=== PATIENT | male | born 1955 | race Caucasian/White ===

== ENCOUNTER 2018-04-22 18:45 | Observation (INO) | payer MEDICARE ==
[2018-04-22] MEDS ORDERED: SODIUM CHLORIDE 0.9% 1,000 ML IV STA ×2 (19:27)
--- NOTE | 2018-04-22 19:31 | CT ---
EXAMINATION TYPE: CT brain wo con DATE OF EXAM: 04/22/2018 COMPARISON: None HISTORY: dr meyer, stroke like symptoms, headache. CT DLP: 1153.4 mGycm Automated exposure control for dose reduction was used. FINDINGS: There is cerebral cortical atrophy. There is no mass effect nor midline shift. There is no sign of in tracranial hemorrhage. There is cavum septum pellucidum which is normal variation. There is small muc us retention cyst right maxillary sinus. Calvarium is intact. IMPRESSION: MILD ATROPHY. NO ACUTE INTRACRANIAL ABNORMALITY.
[2018-04-22 19:59] LABS: Basophils % (A) 0 %; Eosinophils # (A) 0.1 k/uL (0-0.7); Eosinophils % (A) 1 %; HCT 44.8 % (39.0-53.0); HGB 15.6 gm/dL (13.0-17.5); Lymphocytes # (A) 1.5 k/uL (1.0-4.8); Lymphocytes % (A) 12 %; MCH 29.5 pg (25.0-35.0); MCV 84.4 fL (80.0-100.0); Mean Platelet Volume 7.7; Monocytes # (A) 0.7 k/uL (0-1.0); Monocytes % (A) 5 %; Neutrophils # (A) 10.8 k/uL (1.3-7.7); Neutrophils % (A) 81 %; Platelet Count 224 k/uL (150-450); RDW 13.4 % (11.5-15.5); WBC 13.5 k/uL (3.8-10.6)
[2018-04-22 20:09] LABS: ALT 44 U/L (21-72); AST 24 U/L (17-59); Alkaline Phosphatase 64 U/L (38-126); Anion Gap 11 mmol/L; Blood Urea Nitrogen 20 mg/dL (9-20); Calcium 9.8 mg/dL (8.4-10.2); Carbon Dioxide 25 mmol/L (22-30); Chloride 101 mmol/L (98-107); Glucose 242 mg/dL (74-99); Magnesium 1.9 mg/dL (1.6-2.3); Phosphorus 3.9 mg/dL (2.5-4.5); Potassium 3.8 mmol/L (3.5-5.1); Sodium 137 mmol/L (137-145); Total Bilirubin 0.5 mg/dL (0.2-1.3)
[2018-04-22 20:13] LABS: Creatine Kinase 150 U/L (55-170)
[2018-04-22 20:23] LABS: Prothrombin Time 10.2 sec (9.0-12.0)
[2018-04-22 20:25] LABS: Partial Thromboplastin Time 21.4 sec (22.0-30.0)
[2018-04-22 20:26] LABS: Creatine Kinase MB 1.8 ng/mL (0.0-2.4); Troponin I <0.012 ng/mL (0.000-0.034)
--- NOTE | 2018-04-22 21:17 | CT ---
EXAMINATION TYPE: CT angio head neck DATE OF EXAM: 04/22/2018 HISTORY: stroke like symptoms, facial numbness COMPARISON: None CT DLP: 719.3 mGycm. Automated Exposure Control for Dose Reduction was Utilized. TECHNIQUE: CTA scan of the neck is performed with IV Contrast, patient injected with 65 mL of Isovue 370, axial images are obtained, coronal and sagittal reformatted images are reviewed. Three-D recons tructed images are created on an independent workstation and reviewed. FINDINGS: There is normal branching pattern of the great vessels on the aortic arch. There is bilateral arterial flow in the vertebral arteries. There is bilateral arterial flow in the c ommon internal and external carotid arteries. There is no evidence of carotid artery aneurysm or diss ection. There is no evidence of carotid artery stenosis. There is arterial flow in the vertebrobasilar artery system. There is arterial flow in the anterior m iddle and posterior cerebral arteries. I see no evidence of aneurysm or neovascularity. There is no m ass effect. There is normal contrast opacification of the venous sinuses. There is no evidence of int racranial arterial stenosis. The anterior cerebral arteries appear to fill entirely from the right si de. There is a diminutive proximal left anterior cerebral artery. This is probably developmental. IMPRESSION: Negative CT angiogram of the neck. Negative CT angiogram of the brain.
[2018-04-22] MEDS ORDERED: ASPIRIN 325 MG TAB PO STA (21:19)
[2018-04-22] MEDS ORDERED: ALPRAZolam 0.5 MG TAB PO PRN (21:31)
--- NOTE | 2018-04-22 21:35 | ED ---
Headache HPI - General Mode of arrival: ambulatory <Veronika Martin - Last Filed: 04/23/18 02:16> <Ivanna Stephens - Last Filed: 04/27/18 04:02> - General Chief Complaint: Headache Stated Complaint: Dr meyer, stroke like symptoms Time Seen by Provider: 04/22/18 18:58 - History of Present Illness Initial Comments: 62yo male with PMH of HTN and DM presenting today for cc of severe headache and right sided facial numbness. Patient states that about hour prior to presentation he was driving home when he experienced a sudden onset of severe left-sided headache. At the same time he noted right-sided she'll numbness and mild dizziness. Patient presented to a clinic in [place] for evaluation. Patient denies any upper extremity paresthesias, muscle weakness, sensation deficits of the upper or lower extremities, dysarthria, difficulty speaking or swallowing, difficulty ambulating, facial droop, visual changes, diplopia nausea , vomiting, chest pain, shortness of breath, pre-or syncope, palpitations or any other associated symptoms at that time. Patient states that shortly after leaving the clinic his symptoms subsided was told to come immediately to the emergency department. Upon arrival his blood pressure is mildly elevated. Otherwise vital signs unremarkable. Patient appears well, no signs of acute distress. Patient denies any current symptomology. Remainder of ROS negative. (Veronika Martin) - Related Data Home Medications Medication Instructions Recorded Confirmed Montelukast [Singulair] 10 mg PO HS 03/16/14 04/22/18 ALPRAZolam [Xanax] 0.5 mg PO BID PRN 04/22/18 04/22/18 Aspirin EC [Ecotrin Low Dose] 81 mg PO HS 04/22/18 04/22/18 Benzonatate [Tessalon Perles] 100 mg PO TID PRN 04/22/18 04/22/18 Hydrochlorothiazide [Hydrodiuril] 50 mg PO HS 04/22/18 04/22/18 Moxifloxacin HCl [Avelox] 400 mg PO HS 04/22/18 04/22/18 Omeprazole 20 mg PO HS 04/22/18 04/22/18 amLODIPine [Norvasc] 10 mg PO HS 04/22/18 04/22/18 metFORMIN HCL ER [Glucophage Xr] 500 mg PO AC-SUPPER 04/22/18 04/22/18 methylPREDNISolone [Medrol Dose See Taper PO DIRECTED 04/22/18 04/22/18 Pack] Previous Rx's Medication Instructions Recorded Lisinopril 20 mg PO HS #0 04/23/18 Allergies Allergy/AdvReac Type Severity Reaction Status Date / Time No Known Allergies Allergy Verified 04/22/18 20:08 Review of Systems ROS Other: All systems not noted in ROS Statement are negative. Constitutional: Denies: fever, chills, night sweats Eyes: Denies: eye pain, vision change ENT: Denies: ear pain, throat pain, hearing loss Respiratory: Denies: cough, dyspnea, wheezes, hemoptysis, stridor Cardiovascular: Denies: chest pain, palpitations, dyspnea on exertion Endocrine: Denies: fatigue Gastrointestinal: Denies: abdominal pain, nausea, vomiting, diarrhea, constipation, hematemesis, melena, hematochezia Genitourinary: Denies: urgency, dysuria, frequency, hematuria, discharge Musculoskeletal: Denies: back pain Skin: Denies: rash, lesions Neurological: Reports: headache, numbness. Denies: weakness, paresthesias, confusion, abnormal gait <Veronika Martin - Last Filed: 04/23/18 02:16> ROS Other: All systems not noted in ROS Statement are negative. <Ivanna Stephens P - Last Filed: 04/27/18 04:02> ROS Statement: Those systems with pertinent positive or pertinent negative responses have been documented in the HPI. Past Medical History Past Medical History: Diabetes Mellitus, GERD/Reflux, Hypertension History of Any Multi-Drug Resistant Organisms: None Reported Past Surgical History: Orthopedic Surgery Additional Past Surgical History / Comment(s): knee Past Psychological History: Anxiety Smoking Status: Never smoker Past Alcohol Use History: Occasional Past Drug Use History: None Reported <Veronika Martin - Last Filed: 04/23/18 02:16> - Past Family History Mother Family Medical History: CVA/TIA Additional Family Medical History / Comment(s): CVA Father Family Medical History: CVA/TIA Additional Family Medical History / Comment(s): CVA <Ivanna Stephens - Last Filed: 04/27/18 04:02> General Exam <Veronika Martin Last Filed: 04/23/18 02:16> <Ivanna Stephens P - Last Filed: 04/27/18 04:02> - General Exam Comments Initial Comments: General: The patient is awake and alert, in no distress, and does not appear acutely ill. Eye: +3 pupils are equal, round and reactive to light, extra-ocular movements are intact. No nystagmus. no APD, no conjugate gaze. There is normal conjunctiva bilaterally. No signs of icterus. Ears, nose, mouth and throat: There are moist mucous membranes and no oral lesions. Neck: The neck is supple, there is no tenderness or JVD. No carotid artery bruits Cardiovascular: There is a regular rate and rhythm. No murmur, rub or gallop is appreciated. Respiratory: Lungs are clear to auscultation, respirations are non-labored, breath sounds are equal. No wheezes, stridor, rales, or rhonchi. Musculoskeletal: Normal ROM, no tenderness. Strength 5/5. Sensation intact. Pulses equal bilaterally 2+. Neurological: A&O x 3. CN II-XII intact, memory intact to immediately, intermediate and prison recall. Able to follow simple verbal. Able to name a common object (pen). High quality, labial (pa) and lingual (la) speech. Low quality posterior pharynx/larynx (ga) voice sounds. Able to express general knowledge (days in a week). No hemineglect or inattention noted. Finger agnosia (-) and spatially oriented (identified L index finger touched R shoulder with L index finger). Light touchsensation present over the face, chest, abdomen, back, UE bilaterally, and LE bilaterally. Able to localize point during point localization b/l and extinction. No visible bulk atrophy, hypertrophy, fasciculations, or myoclonus of the UE or LE b/l. Full PROM in UE and LE b/l. Bilateral muscle strength 5/5 for the following muscles: deltoid, biceps, triceps, brachioradialis, wrist extensors/flexor, hip flexor, hip abductors/adductors, hamstrings, quadriceps, feet dorsiflexors/plantar flexors. Finger to nose, finger to the examiners finger, and heel to garcia coordinated and accurate b/l. Coordinated and even demonstration of hand flip, finger to thumb, and toe tap b/l. ( Gait is coordinated and even in stride with tandem, toe and heel walk. Maintains balance with monopedal stance. (-) Romberg. (-) pronator drift. No nuchal rigidity. Skin: Skin is warm and dry and no rashes or lesions are noted. Psychiatric: Cooperative, appropriate mood & affect, normal judgment. (Veronika Martin) Course <Veronika Martin - Last Filed: 04/23/18 02:16> <Ivanna Stephens P - Last Filed: 04/27/18 04:02> Vital Signs 04/22/18 04/22/18 04/22/18 18:47 21:18 22:54 Temperature 98.3 F 98.5 F Pulse Rate 81 66 Pulse Rate [ 67 Imaging Clerk ] Respiratory 20 18 17 Rate Blood Pressure 151/78 135/78 Blood Pressure 119/69 [Right Arm Supine] O2 Sat by Pulse 99 98 95 Oximetry 04/22/18 04/23/18 04/23/18 23:54 00:54 01:54 Temperature Pulse Rate Pulse Rate [ 57 L 58 L 51 L Imaging Clerk ] Respiratory 18 18 16 Rate Blood Pressure Blood Pressure 113/60 113/74 123/84 [Right Arm Supine] O2 Sat by Pulse 95 95 96 Oximetry 04/23/18 04/23/18 04/23/18 03:54 05:54 07:54 Temperature Pulse Rate Pulse Rate [ 57 L 71 72 Imaging Clerk ] Respiratory 16 16 16 Rate Blood Pressure Blood Pressure 116/79 111/62 111/56 [Right Arm Supine] O2 Sat by Pulse 97 95 97 Oximetry 04/23/18 04/23/18 04/23/18 09:54 11:54 13:54 Temperature 98 F Pulse Rate Pulse Rate [ 68 68 67 Imaging Clerk ] Respiratory 18 18 18 Rate Blood Pressure Blood Pressure 110/66 138/92 113/87 [Right Arm Supine] O2 Sat by Pulse 96 95 96 Oximetry 04/23/18 15:54 Temperature Pulse Rate Pulse Rate [ 64 Imaging Clerk ] Respiratory 16 Rate Blood Pressure Blood Pressure 124/79 [Right Arm Supine] O2 Sat by Pulse 97 Oximetry Medical Decision Making - Lab Data Result diagrams: 04/22/18 19:14 04/22/18 19:14 <Veronika Martin - Last Filed: 04/23/18 02:16> - Lab Data Result diagrams: 04/22/18 19:14 04/22/18 19:14 <Ivanna Stephens - Last Filed: 04/27/18 04:02> - Medical Decision Making EKG no acute findings. Laboratory findings as noted above, elevated blood glucose and mildly elevated WBC. CT brain w/o contrast and CT angio (-). No focal neurological deficits on exam. Pt continues to deny symptoms. Pt given 325 ASA. Given symptoms, and risk factors concerned for TIA. Pt admitted after discussing the case with Dr. Stephens. Dr. Mitchell accepted admission. Neurology on consult. All findings discussed with patient, pt is agreeable with admission. Denied questions at this time. Home medications resumed. BP remains stable. (Veronika Martin) I personally saw and examined the patient. I reviewed and agree with the mid- level provider findings including all diagnostic interpretations and treatment plans as written unless otherwise stated. I was present for granda portions of any procedures performed. I agree with the plan for admission, patient care was discussed with Dr. Mitchell who accepts the admission. (Ivanna Stephens) - Lab Data Lab Results 04/22/18 04/22/18 04/22/18 Range/Units 19:14 19:14 19:14 WBC 13.5 H (3.8-10.6) k/uL RBC 5.30 (4.30-5.90) m/uL Hgb 15.6 (13.0-17.5) gm/dL Hct 44.8 (39.0-53.0) % MCV 84.4 (80.0-100.0) fL MCH 29.5 (25.0-35.0) pg MCHC 35.0 (31.0-37.0) g/dL RDW 13.4 (11.5-15.5) % Plt Count 224 (150-450) k/uL Neutrophils % 81 % Lymphocytes % 12 % Monocytes % 5 % Eosinophils % 1 % Basophils % 0 % Neutrophils # 10.8 H (1.3-7.7) k/uL Lymphocytes # 1.5 (1.0-4.8) k/uL Monocytes # 0.7 (0-1.0) k/uL Eosinophils # 0.1 (0-0.7) k/uL Basophils # 0.0 (0-0.2) k/uL PT (9.0-12.0) sec INR (<1.2) APTT (22.0-30.0) sec Sodium 137 (137-145) mmol/L Potassium 3.8 (3.5-5.1) mmol/L Chloride 101 (98-107) mmol/L Carbon Dioxide 25 (22-30) mmol/L Anion Gap 11 mmol/L BUN 20 (9-20) mg/dL Creatinine 0.85 (0.66-1.25) mg/dL Est GFR (CKD-EPI)AfAm >90 (>60 ml/min/1.73 sqM) Est GFR (CKD-EPI)NonAf >90 (>60 ml/min/1.73 sqM) Glucose 242 H (74-99) mg/dL Calcium 9.8 (8.4-10.2) mg/dL Phosphorus 3.9 (2.5-4.5) mg/dL Magnesium 1.9 (1.6-2.3) mg/dL Total Bilirubin 0.5 (0.2-1.3) mg/dL AST 24 (17-59) U/L ALT 44 (21-72) U/L Alkaline Phosphatase 64 (38-126) U/L Total Creatine Kinase 150 (55-170) U/L CK-MB (CK-2) 1.8 (0.0-2.4) ng/mL CK-MB (CK-2) Rel Index 1.2 Troponin I <0.012 (0.000-0.034) ng/mL Total Protein 7.0 (6.3-8.2) g/dL Albumin 4.0 (3.5-5.0) g/dL 04/22/18 Range/Units 19:14 WBC (3.8-10.6) k/uL RBC (4.30-5.90) m/uL Hgb (13.0-17.5) gm/dL Hct (39.0-53.0) % MCV (80.0-100.0) fL MCH (25.0-35.0) pg MCHC (31.0-37.0) g/dL RDW (11.5-15.5) % Plt Count (150-450) k/uL Neutrophils % % Lymphocytes % % Monocytes % % Eosinophils % % Basophils % % Neutrophils # (1.3-7.7) k/uL Lymphocytes # (1.0-4.8) k/uL Monocytes # (0-1.0) k/uL Eosinophils # (0-0.7) k/uL Basophils # (0-0.2) k/uL PT 10.2 (9.0-12.0) sec INR 1.0 (<1.2) APTT 21.4 L (22.0-30.0) sec Sodium (137-145) mmol/L Potassium (3.5-5.1) mmol/L Chloride (98-107) mmol/L Carbon Dioxide (22-30) mmol/L Anion Gap mmol/L BUN (9-20) mg/dL Creatinine (0.66-1.25) mg/dL Est GFR (CKD-EPI)AfAm (>60 ml/min/1.73 sqM) Est GFR (CKD-EPI)NonAf (>60 ml/min/1.73 sqM) Glucose (74-99) mg/dL Calcium (8.4-10.2) mg/dL Phosphorus (2.5-4.5) mg/dL Magnesium (1.6-2.3) mg/dL Total Bilirubin (0.2-1.3) mg/dL AST (17-59) U/L ALT (21-72) U/L Alkaline Phosphatase (38-126) U/L Total Creatine Kinase (55-170) U/L CK-MB (CK-2) (0.0-2.4) ng/mL CK-MB (CK-2) Rel Index Troponin I (0.000-0.034) ng/mL Total Protein (6.3-8.2) g/dL Albumin (3.5-5.0) g/dL - EKG Data EKG Comments: Ventricular rate 72bpm, PA interveal 156 ms, QRS duration 104ms, QT/QTc 406/ 444. Normal sinus rhythm, left anterior fascicular block. No ST elevtion or depression. Nonspecific T wave changes. EKG interpretted by myself and reviewed Dr. Stephens (Veronika Martin) Disposition Is patient prescribed a controlled substance at d/c from ED?: No Time of Disposition: 21:35 Decision to Admit Reason: Admit from EC Decision Date: 04/22/18 Decision Time: 21:35 <Veronika Martin - Last Filed: 04/23/18 02:16> <Ivanna Stephens - Last Filed: 04/27/18 04:02> Clinical Impression: TIA (transient ischemic attack) Disposition: ADMITTED IP TO THIS HOSP Condition: Stable
[2018-04-22] MEDS ORDERED: SODIUM CHLORIDE 0.9% 1,000 ML IV SCH (21:45)
[2018-04-22] MEDS ORDERED: HYDROCHLOROTHIAZIDE 50 MG TAB PO SCH (23:30)
[2018-04-22] MEDS ORDERED: LISINOPRIL 20 MG TAB PO SCH (23:30)
[2018-04-22] MEDS ORDERED: amLODIPine 10 MG TAB PO SCH (23:30)
[2018-04-22] MEDS ORDERED: MONTELUKAST 10 MG TAB PO SCH (23:30)
[2018-04-22] MEDS ORDERED: PANTOPRAZOLE 40 MG TABLET PO SCH (23:30)
[2018-04-23] MEDS: LEVOFLOXACIN 750 MG TAB PO SCH ×2 (00:54→00:55)
[2018-04-23 06:44] LABS: Cholesterol 160 mg/dL (<200); HDL Cholesterol 43 mg/dL (40-60); LDL Cholesterol,Calculated 105 mg/dL (0-99); Triglycerides 59 mg/dL (<150)
--- NOTE | 2018-04-23 12:22 | ECHOF ---
Referral Reason:Thrombus MEASUREMENTS -------- HEIGHT: 182.9 cm WEIGHT: 113.4 kg BP: 111/62 RVIDd: 3.4 cm (< 3.3) IVSd: 1.2 cm (0.6 - 1.1) LVIDd: 3.2 cm (3.9 - 5.3) LVPWd: 1.6 cm (0.6 - 1.1) IVSs: 1.6 cm LVIDs: 1.9 cm LVPWs: 1.7 cm LAESV Index (A-L): 19.49 ml/m Ao Diam: 3.0 cm (2.0 - 3.7) AV Cusp: 2.0 cm (1.5 - 2.6) LA Diam: 3.7 cm (2.7 - 3.8) MV EXCURSION: 14.013 mm (> 18.000) MV EF SLOPE: 81 mm/s (70 - 150) EPSS: 0.6 cm MV E Zane: 0.61 m/s MV DecT: 268 ms MV A Zane: 0.77 m/s MV E/A Ratio: 0.79 RAP: 5.00 mmHg RVSP: 20.73 mmHg FINDINGS -------- Sinus rhythm. This was a technically good study. The left ventricular size is normal. There is moderate concentric left ventricular hypertrophy. O verall left ventricular systolic function is normal with, an EF between 55 - 60 %. The right ventricle is mildly enlarged. The left atrial size is normal. The right atrium is normal in size. The aortic valve is trileaflet and appears structurally normal. The mitral valve is normal. There is trace mitral regurgitation. Trace tricuspid regurgitation present. There is no evidence of pulmonary hypertension. The right ventricular systolic pressure, as measured by Doppler, is 20.73mmHg. There is no pulmonic regurgitation present. The aortic root size is normal. There is no pericardial effusion. CONCLUSIONS -------- 1. Sinus rhythm. 2. This was a technically good study. 3. The left ventricular size is normal. 4. There is moderate concentric left ventricular hypertrophy. 5. Overall left ventricular systolic function is normal with, an EF between 55 - 60 %. 6. The right ventricle is mildly enlarged. 7. The left atrial size is normal. 8. The aortic valve is trileaflet and appears structurally normal. 9. There is trace mitral regurgitation. 10. Trace tricuspid regurgitation present. 11. There is no evidence of pulmonary hypertension. 12. There is no pulmonic regurgitation present. 13. The aortic root size is normal. 14. There is no pericardial effusion. MANAGER DOMESTIC: Jacy Jackson RDCS
--- NOTE | 2018-04-23 12:34 | P.HPIM ---
History of Present Illness 62-year-old gentleman with the past medical history of hypertension and diabetes mellitus came in with complaints of an episode of headache which started yesterday lasted for about 15 minutes on the right side of the head sharp in nature. After that patient had some numbness in the cattle farmer of right side of the mouth, not involving any other areas of the cheek. Patient denied any weakness, was also having some dizziness because of which she is concerned about stroke and went to his PCPs office Dr. Ramey's office, patient was subsequently sent in here for further evaluation for TIA or stroke. Patient's symptomatology is not consistent with with a TIA or a stroke patient did take aspirin does have mildly elevated LDL of 105 for which dietary counseling will be provided patient had a CT angios the head and neck was done which was negative echocardiogram is essentially within normal limits and CT of the head without contrast did not show any intracerebral hemorrhage. All the workup for TIA and stroke was done. Patient is requesting neurology evaluation. Once neurology evaluated the patient and if they cleared him for discharge patient was subsequently discharged. Patient is on moxifloxacin at home it appears to be for upper respiratory infection as of now that is not an issue patient will complete his does of antibiotic. Review of Systems REVIEW OF SYSTEMS: CONSTITUTIONAL: No fever, no malaise, no fatigue. HEENT: No recent visual problems or hearing problems. Denied any sore throat. CARDIOVASCULAR: No chest pain, orthopnea, PND, no palpitations, no syncope. PULMONARY: No shortness of breath, no cough, no hemoptysis. GASTROINTESTINAL: No diarrhea, no nausea, no vomiting, no abdominal pain. Normoactive bowel sounds. NEUROLOGICAL: No headaches, no weakness. HEMATOLOGICAL: Denies any bleeding or petechiae. GENITOURINARY: Denies any burning micturition, frequency, or urgency. MUSCULOSKELETAL/RHEUMATOLOGICAL: Denies any joint pain, swelling, or any muscle pain. ENDOCRINE: Denies any polyuria or polydipsia. The rest of the 14-point review of systems is negative. Past Medical History Past Medical History: Diabetes Mellitus, GERD/Reflux, Hypertension History of Any Multi-Drug Resistant Organisms: None Reported Past Surgical History: Orthopedic Surgery Additional Past Surgical History / Comment(s): knee Past Psychological History: Anxiety Smoking Status: Never smoker Past Alcohol Use History: Occasional Past Drug Use History: None Reported Medications and Allergies Home Medications Medication Instructions Recorded Confirmed Type Montelukast [Singulair] 10 mg PO HS 03/16/14 04/22/18 History ALPRAZolam [Xanax] 0.5 mg PO BID PRN 04/22/18 04/22/18 History Aspirin EC [Ecotrin Low Dose] 81 mg PO HS 04/22/18 04/22/18 History Benzonatate [Tessalon Perles] 100 mg PO TID PRN 04/22/18 04/22/18 History Hydrochlorothiazide [Hydrodiuril] 50 mg PO HS 04/22/18 04/22/18 History Moxifloxacin HCl [Avelox] 400 mg PO HS 04/22/18 04/22/18 History Omeprazole 20 mg PO HS 04/22/18 04/22/18 History amLODIPine [Norvasc] 10 mg PO HS 04/22/18 04/22/18 History metFORMIN HCL ER [Glucophage Xr] 500 mg PO AC-SUPPER 04/22/18 04/22/18 History methylPREDNISolone [Medrol Dose See Taper PO DIRECTED 04/22/18 04/22/18 History Pack] Lisinopril 20 mg PO HS #0 04/23/18 04/22/18 Rx Allergies Allergy/AdvReac Type Severity Reaction Status Date / Time No Known Allergies Allergy Verified 04/22/18 20:08 Physical Exam Vitals: Vital Signs Temp Pulse Pulse Resp BP BP Pulse Ox 04/23/18 09:54 98 F 68 18 110/66 96 04/23/18 07:54 72 16 111/56 97 04/23/18 05:54 71 16 111/62 95 04/23/18 03:54 57 L 16 116/79 97 04/23/18 01:54 51 L 16 123/84 96 04/23/18 00:54 58 L 18 113/74 95 04/22/18 23:54 57 L 18 113/60 95 04/22/18 22:54 98.5 F 67 17 119/69 95 04/22/18 21:18 66 18 135/78 98 04/22/18 18:47 98.3 F 81 20 151/78 99 Intake and Output 04/22/18 04/23/18 04/23/18 22:59 06:59 14:59 Other: # Voids 1 Weight 113.398 kg PHYSICAL EXAMINATION: GENERAL: The patient is alert and oriented x3, not in any acute distress. Well developed, well nourished. HEENT: Pupils are round and equally reacting to light. EOMI. No scleral icterus. No conjunctival pallor. Normocephalic, atraumatic. No pharyngeal erythema. No thyromegaly. CARDIOVASCULAR: S1 and S2 present. No murmurs, rubs, or gallops. PULMONARY: Chest is clear to auscultation, no wheezing or crackles. ABDOMEN: Soft, nontender, nondistended, normoactive bowel sounds. No palpable organomegaly. MUSCULOSKELETAL: No joint swelling or deformity. EXTREMITIES: No cyanosis, clubbing, or pedal edema. NEUROLOGICAL: Gross neurological examination did not reveal any focal deficits. SKIN: No rashes. Results CBC & Chem 7: 04/22/18 19:14 04/22/18 19:14 Labs: Abnormal Lab Results - Last 24 Hours (Table) 04/22/18 04/22/18 04/22/18 Range/Units 19:14 19:14 19:14 WBC 13.5 H (3.8-10.6) k/uL Neutrophils # 10.8 H (1.3-7.7) k/uL APTT 21.4 L (22.0-30.0) sec Glucose 242 H (74-99) mg/dL LDL Cholesterol, Calc (0-99) mg/dL 04/23/18 Range/Units 05:55 WBC (3.8-10.6) k/uL Neutrophils # (1.3-7.7) k/uL APTT (22.0-30.0) sec Glucose (74-99) mg/dL LDL Cholesterol, Calc 105 H (0-99) mg/dL Assessment and Plan Plan: -Rule out TIA/stroke: Patient's symptomatology is not consistent with stroke or TIA. Most of the workup is done and after evaluation by neurology patient will be discharged without any changes in medication except for cutting down his antidepressive medication. -Mild dizziness: Secondary to antidepressive medications lisinopril dose will be decreased from 40 mg to 20 mg patient was asked to check his blood pressure at home -Mild hyperlipidemia that we counseling was provided patient is not in any statins at this time. -Hypertension -Type 2 diabetes mellitus: For these medical problems patient will continue his home medications with above-mentioned changes. Patient will follow with Dr. Ramey in 3-5 days. If cleared by neurology patient will be discharged today
--- NOTE | 2018-04-23 12:34 | P.DS ---
Providers Date of admission: 04/22/18 21:36 Attending physician: Lisseth Faith Consults: 04/22/18 21:38 Consult Physician Stat Consulting Provider: Michel Sharma Consult Reason/Comments: TIA, facial numbness Do you want consulting provider notified?: Yes Primary care physician: Waleska Lin [facility] Course: Please refer to my HPI for further details Patient Condition at Discharge: Stable Plan - Discharge Summary New Discharge Prescriptions: Continue Montelukast [Singulair] 10 mg PO HS metFORMIN HCL ER [Glucophage Xr] 500 mg PO AC-SUPPER Hydrochlorothiazide [Hydrodiuril] 50 mg PO HS Aspirin EC [Ecotrin Low Dose] 81 mg PO HS methylPREDNISolone [Medrol Dose Pack] See Taper PO DIRECTED Benzonatate [Tessalon Perles] 100 mg PO TID PRN PRN Reason: Cough amLODIPine [Norvasc] 10 mg PO HS Omeprazole 20 mg PO HS Moxifloxacin HCl [Avelox] 400 mg PO HS ALPRAZolam [Xanax] 0.5 mg PO BID PRN PRN Reason: Anxiety Changed Lisinopril 20 mg PO HS #0 Discharge Medication List Montelukast [Singulair] 10 mg PO HS 03/16/14 [History] ALPRAZolam [Xanax] 0.5 mg PO BID PRN 04/22/18 [History] Aspirin EC [Ecotrin Low Dose] 81 mg PO HS 04/22/18 [History] Benzonatate [Tessalon Perles] 100 mg PO TID PRN 04/22/18 [History] Hydrochlorothiazide [Hydrodiuril] 50 mg PO HS 04/22/18 [History] Moxifloxacin HCl [Avelox] 400 mg PO HS 04/22/18 [History] Omeprazole 20 mg PO HS 04/22/18 [History] amLODIPine [Norvasc] 10 mg PO HS 04/22/18 [History] metFORMIN HCL ER [Glucophage Xr] 500 mg PO AC-SUPPER 04/22/18 [History] methylPREDNISolone [Medrol Dose Pack] See Taper PO DIRECTED 04/22/18 [History ] Lisinopril 20 mg PO HS #0 04/23/18 [Rx] Follow up Appointment(s)/Referral(s): Waleska Lin DO [Primary Care Provider] - 3 Days Patient Instructions/Handouts: Acute Headache (ED) Discharge Disposition: HOME SELF-CARE
[2018-04-23 16:50] VITALS: RESP 16
[2018-04-23 17:14] LABS: Glucose,Whole Blood 113 mg/dL (75-99)
[2018-04-23 17:26] VITALS: BP 159/79; PULSE 60; TEMP 96.7
[2018-04-23] MEDS ORDERED: metFORMIN 500 MG TAB PO SCH (17:30)
--- NOTE | 2018-04-23 19:02 | P.CNNES ---
History of Present Illness Consult date: 04/23/18 Reason for Consult: Patient admitted with dizziness and TIA symptoms. History of Present Illness: This patient is a 62-year-old right-handed white male who states he was in his usual state of health yesterday evening. Patient was returning home from a union meeting from [employer] and was driving at the time when he developed severe right temporal headache pain. He describes the pain as piercing in nature and localized to the scientology area only. He has not had history of headaches or migraines in the past. He states that along with the episode of severe right-sided headache pain he also had some numbness on the right cheek. The patient was quite concerned as he was aware of stroke like symptoms in the past as his father suffered a stroke. The patient was concerned about his symptoms and decided to drive directly to his primary care physician's office who is Dr. Ramey. He was seen there by the physician assistant softball coach and was advised to go directly to the hospital for further evaluation. Patient was brought into the emergency room at [facility] yesterday evening. He was seen in the ER by Physician Clinic Lead Veronika Martin. The patient states that the entire episode of severe pain lasted 15-20 minutes in duration. He did not have any other symptoms such as vision changes or paresthesias. He denied having any slurred speech or facial droop. The patient does take a baby aspirin on a regular basis at 81 mg daily. The patient was evaluated in the ER and was sent for a computed tomography scan of the brain as well as a CTA angiogram of the head and neck. The CAT scan of the brain revealed only mild atrophy with no evidence of acute intracranial abnormality. CTA angiogram came back negative for any cranial abnormalities. No evidence of any stenosis or aneurysm. By the time he was admitted to hospital his headache has completely resolved. On further questioning he has no previous history of severe migraine headaches or other headache patterns in the past. We have recommended to have him undergo some laboratory testing to rule out any possibility of temporal arteritis. The patient otherwise states he is been in good health and does follow-up with his primary care physician on a regular basis. The patient underwent laboratory testing today which included a lipid profile. His total cholesterol was 160. His LDL was 105. The patient had no evidence of any carotid artery disease based on his CTA angiogram results. The patient states he is feeling back to normal this afternoon and is not having any further recurrence of headache pain. We recommend patient to be maintained on 1 aspirin daily for secondary stroke prevention. We've reviewed the results of the CTA angiogram with the patient in detail. There is no evidence of cerebral aneurysm. Once again we will obtain a ESR and C-reactive protein for further evaluation of possible temporal arteritis. If these tests are within normal range tomorrow morning he may be considered for discharge home. His neurological examination today is nonfocal. He may follow-up in the outpatient neurology clinic in 3-4 weeks. Review of Systems Constitutional: Denies chills, Denies fever Eyes: denies blurred vision, denies pain Ears, nose, mouth and throat: Denies headache, Denies sore throat Cardiovascular: Denies chest pain, Denies shortness of breath Respiratory: Denies cough Gastrointestinal: Denies abdominal pain, Denies diarrhea, Denies nausea, Denies vomiting Musculoskeletal: Denies myalgias Integumentary: Denies pruritus, Denies rash Neurological: Reports headaches, Reports paresthesias, Reports tingling, Denies numbness, Denies weakness Psychiatric: Denies anxiety, Denies depression Endocrine: Denies fatigue, Denies weight change Past Medical History Past Medical History: Diabetes Mellitus, GERD/Reflux, Hypertension Additional Past Medical History / Comment(s): NIDDM type II, current respiratory infection on ABX and steroids, head injury in his 20s. History of Any Multi-Drug Resistant Organisms: None Reported Past Surgical History: Orthopedic Surgery Additional Past Surgical History / Comment(s): R knee arthroscopy, R hand cyst, lasik eye surgery bilaterally, colonoscopy-normal. Past Anesthesia/Blood Transfusion Reactions: No Reported Reaction Additional Past Anesthesia/Blood Transfusion Reaction / Comment(s): Pt has received blood in past without reaction. Smoking Status: Never smoker - Past Family History Mother Family Medical History: CVA/TIA Additional Family Medical History / Comment(s): CVA Father Family Medical History: CVA/TIA Additional Family Medical History / Comment(s): CVA Medications and Allergies Home Medications Medication Instructions Recorded Confirmed Type Montelukast [Singulair] 10 mg PO HS 03/16/14 04/22/18 History ALPRAZolam [Xanax] 0.5 mg PO BID PRN 04/22/18 04/22/18 History Aspirin EC [Ecotrin Low Dose] 81 mg PO HS 04/22/18 04/22/18 History Benzonatate [Tessalon Perles] 100 mg PO TID PRN 04/22/18 04/22/18 History Hydrochlorothiazide [Hydrodiuril] 50 mg PO HS 04/22/18 04/22/18 History Moxifloxacin HCl [Avelox] 400 mg PO HS 04/22/18 04/22/18 History Omeprazole 20 mg PO HS 04/22/18 04/22/18 History amLODIPine [Norvasc] 10 mg PO HS 04/22/18 04/22/18 History metFORMIN HCL ER [Glucophage Xr] 500 mg PO AC-SUPPER 04/22/18 04/22/18 History methylPREDNISolone [Medrol Dose See Taper PO DIRECTED 04/22/18 04/22/18 History Pack] Lisinopril 20 mg PO HS #0 04/23/18 04/22/18 Rx Allergies Allergy/AdvReac Type Severity Reaction Status Date / Time No Known Allergies Allergy Verified 04/22/18 20:08 Physical Examination - Vital Signs Vital Signs: Vital Signs Temp Pulse Pulse Resp BP BP Pulse Ox 04/23/18 15:54 64 16 124/79 97 04/23/18 13:54 67 18 113/87 96 04/23/18 11:54 68 18 138/92 95 04/23/18 09:54 98 F 68 18 110/66 96 04/23/18 07:54 72 16 111/56 97 04/23/18 05:54 71 16 111/62 95 04/23/18 03:54 57 L 16 116/79 97 04/23/18 01:54 51 L 16 123/84 96 04/23/18 00:54 58 L 18 113/74 95 04/22/18 23:54 57 L 18 113/60 95 04/22/18 22:54 98.5 F 67 17 119/69 95 04/22/18 21:18 66 18 135/78 98 04/22/18 18:47 98.3 F 81 20 151/78 99 Intake and Output 04/23/18 04/23/18 04/23/18 06:59 14:59 22:59 Other: # Voids 1 - Constitutional General appearance: average body habitus, cooperative - EENT EENT: PERRL, mucous membranes moist - Respiratory Respiratory: lungs clear, normal breath sounds - Cardiovascular Cardiovascular: regular rate, normal S1, normal S2 Extremities: no peripheral edema bilaterally - Gastrointestinal Gastrointestinal: normoactive bowel sounds - Integumentary Integumentary: normal - Neurologic Cranial nerve examination: PERRL, EOMI, VFF, V1/V2/V3 grossly intact, face symmetric, intact gag reflex, intact corneal reflex, normal palatal elevation Speech examination: intact Sensorimotor examination: intact Motor examination - right side: 4/5: biceps, triceps, wrist flexion, wrist extension, program admin, hip flexors, knee extensors, dorsiflexion, toe extension (EHL) , plantarflexion Motor examination - left side: 4/5: biceps, triceps, wrist flexion, wrist extension, program admin, hip flexors, knee extensors, dorsiflexion, toe extension (EHL) , plantarflexion Detailed sensory examination: intact Reflex and gait examination: intact Reflexes: 1+: ankle, bicep, knee, tricep - Musculoskeletal Musculoskeletal: no pain - Psychiatric Psychiatric: mood/affect appropriate, cooperative Results - Laboratory Findings CBC and BMP: 04/22/18 19:14 04/22/18 19:14 Abnormal Lab Findings: Abnormal Labs 04/22/18 04/22/18 04/22/18 19:14 19:14 19:14 WBC 13.5 H Neutrophils # 10.8 H APTT 21.4 L Glucose 242 H LDL Cholesterol, Calc 04/23/18 05:55 WBC Neutrophils # APTT Glucose LDL Cholesterol, Calc 105 H Assessment and Plan (1) Head pain cephalgia Current Visit: Yes Status: Acute Code(s): R51 - HEADACHE SNOMED Code(s): 92536233 (2) TIA (transient ischemic attack) Current Visit: Yes Status: Acute Code(s): G45.9 - TRANSIENT CEREBRAL ISCHEMIC ATTACK, UNSPECIFIED SNOMED Code(s): 894613503 Plan: This patient is a 62-year-old right-handed white male was admitted to hospital yesterday with severe acute cephalgia affecting his right temporal region. Pain came on suddenly while he was driving home yesterday evening. He went directly to his primary care physician's office Dr. Ramey and was seen there by the physician assistant softball coach. He was advised to go directly to the emergency room. Patient drove to the ER yesterday evening and was seen in the emergency room by Physician Clinic Lead Mckenna Martin yesterday evening. His headache had completely resolved after 15 minutes. He was sent for a computed tomography scan of the brain and CTA angiogram of the head and neck. Results are as noted above. She was admitted to the hospital for further evaluation. His neurological examination at this time is nonfocal. He has had no further recurrence of headache pain. His neurological examination is nonfocal at this time. We did review the results of his CAT scan of the brain and CT angiogram with the patient in detail. There is no evidence for cerebral aneurysm. We have recommended the patient undergo laboratory testing tonight to include a sedimentation rate and CRP. We would like to rule out any possibility of temporal arteritis. His headache pain was localized to the right temporal region only. The patient's neurological examination at this time is nonfocal. He may be considered for discharge home tomorrow if cleared by internal medicine. He may follow-up in the outpatient neurology clinic in 3-4 weeks as needed. His overall prognosis at this time remains guarded. Time with Patient: Greater than 30
[2018-04-23] MEDS ORDERED: LISINOPRIL 10 MG TAB PO SCH (21:00)
== END 2018-04-23 19:55 | disposition home or self-care (01) ==
LOC: EC 18:45 → 3SCARD 21:36
PROVIDERS: ADMIT Hospitalist; ATTEND Hospitalist
DX: R42 Dizziness and giddiness (principal); T46.4X5A Adverse effect of angiotensin-converting-enzyme inhibitors, initial encounter; E78.5 Hyperlipidemia, unspecified; I10 Essential (primary) hypertension; E11.65 Type 2 diabetes mellitus with hyperglycemia; D72.829 Elevated white blood cell count, unspecified; R51 Headache; R20.0 Anesthesia of skin; K21.9 Gastro-esophageal reflux disease without esophagitis; F41.9 Anxiety disorder, unspecified; Z79.899 Other long term (current) drug therapy; Z79.82 Long term (current) use of aspirin; Z79.84 Long term (current) use of oral hypoglycemic drugs; Z82.3 Family history of stroke
CPT/HCPCS: 96360; 96361 ×2; 99285; 36415; 93005; 93306; 80061; 80053; 85652; 82550; 82553; 83735; 84100; 84484; 85025; 85610; 85730; 86140; 70496; 70450; 70498; G0378 ×2; Q9967

== ENCOUNTER 2019-04-29 07:22 | Day surgery (SDC) | payer MEDICARE ==
[2019-04-27 10:51] VITALS: BMI 33.5
[~2019-04-29 07:22] MED LIST: LACTATED RINGERS 1,000 ML IV SCH
[2019-04-29 07:46] VITALS: TEMP 97.5
[2019-04-29] MEDS ORDERED: LIDOCAINE 1% 20 ML VIAL (10MG/ML) FOR IV START INTRADERMA ONE (07:52)
[2019-04-29 07:54] LABS: Glucose,Whole Blood 130 mg/dL (75-99)
[2019-04-29] MEDS ORDERED: PROPOFOL 10 MG/ML 20 ML VIAL IV ONE (08:17)
[2019-04-29] MEDS ORDERED: LIDOCAINE 1% INJ 10MG/ML (20 ML MDV) ONE (08:17)
[2019-04-29] MEDS ORDERED: fentaNYL (PF) 50 MCG/ML 2 ML AMP ONE (08:17)
[2019-04-29] MEDS ORDERED: MIDAZOLAM 2 MG/2 ML VIAL ONE (08:17)
--- NOTE | 2019-04-29 08:58 | P.PCN ---
Date of Procedure: 04/29/19 Description of Procedure: Brief history: Patient is a pleasant scheduled for an elective upper endoscopy as well as colonoscopy as a part of evaluation of History of gastric polyp screening for malignant neoplasm colon. Patient believes last procedures were performed. 5 years ago. He is on omeprazole for acid reflux. No family history of colon cancer. Procedure performed: Esophagogastroduodenoscopy with biopsy Colonoscopy with polypectomy Estimated blood loss: Minimal. Preoperative diagnosis: Gastric polyp, screening for malignant neoplasm of the colon, last EGD and colonoscopy approximately 4 years Anesthesia: MAC Procedure: After informed consent was obtained from the patient was brought into the endoscopy unit and IV sedation was administered by anesthesia under continuous monitoring. Initially upper endoscopy was done. The Olympus GF 190 video endoscope was inserted into the mouth and esophagus intubated without any difficulty and was gradually advanced into the stomach and duodenum and carefully examined. The bulb and second part of the duodenum appeared normal, with biopsies taken. The scope was then withdrawn into the stomach adequately insufflated with air and upon careful examination the antrum and body, cardia and fundus appearegross normal with mild scattered erythema in the antrum and body with biopsies taken. There was also some scattered polyps in the body and fundus consistent with fundic gland polyps which were biopsied. The scope was then withdrawn into the esophagus. The GE junction was located at 36 cm to the incisors, With a 2 cm hiatal hernia noted . It appeared regular with no erythema erosions or ulcerations. Rest of the esophagus appeared normal. Patient tolerated the procedure well. At this time the patient continued to remain sedation. Initial digital rectal examination was normal. Olympus CF 190 video colonoscope was then inserted into the rectum and gradually advanced to the cecum without any difficulty. Careful examination was performed as the scope was gradually being withdrawn. The prep was excellent. The cecum, ascending colon, transverse colon, descending colon, sigmoid colon and rectum appeared normal. The terminal ileum was intubated and appeared normal. 2 diminutive rectal polyps likely representing hyperplastic polyps were removed with cold forcep polypectomy. Retroflexion was performed in the rectum and no lesions were noted. Patient tolerated the procedure well. Impression: 1. Mild gastritis antrum and body, biopsied. Gastric polyps biopsied. Duodenal biopsies. Hiatal hernia. 2. 2 diminutive rectal polyps removed with cold forceps. Otherwise normal-appearing colon from rectum to cecum with normal-appearing terminal ileum. Recommendations: Findings of this examination were discussed with the patient as well as his . Okay to resume diet. Okay to resume medications. Await pathology from biopsies and polypectomies. Anticipate repeat colonoscopy in 5 years for history of colon polyps pending pathology from polypectomies.
[2019-04-29 09:13] VITALS: BP 110/71; PULSE 63; RESP 16
== END 2019-04-29 09:28 | disposition home or self-care (01) ==
LOC: ORWHC2ENDO 07:22
PROVIDERS: ATTEND Internal Medicine
DX: Z12.11 Encounter for screening for malignant neoplasm of colon (principal); K62.1 Rectal polyp; K31.7 Polyp of stomach and duodenum; K21.9 Gastro-esophageal reflux disease without esophagitis; K44.9 Diaphragmatic hernia without obstruction or gangrene; I10 Essential (primary) hypertension; E78.5 Hyperlipidemia, unspecified; E11.9 Type 2 diabetes mellitus without complications; F32.9 Major depressive disorder, single episode, unspecified; Z79.899 Other long term (current) drug therapy; Z79.01 Long term (current) use of anticoagulants; Z79.82 Long term (current) use of aspirin
CPT/HCPCS: 88305; 45380; 43239; J2250; J2001; J3010; J2704

== ENCOUNTER → 2020-11-23 | Outpatient (CLI) | payer MEDICARE ==
--- NOTE | 2020-11-23 17:13 | CT ---
EXAMINATION TYPE: CT abdomen wo con DATE OF EXAM: 11/23/2020 COMPARISON: None HISTORY: 65-year-old male R10.9, Unspecified abdominal pain, under LT ribs, into back. TECHNIQUE: Contiguous axial scanning of the abdomen without IV contrast. Coronal and sagittal reconst ructions performed. CT DLP: 707.70 mGycm Automated exposure control for dose reduction was used. FINDINGS: Heart normal size without pericardial effusion. Small hiatal hernia. Lung bases clear without pleural effusion. Liver enlarged measuring 20.2 cm. Slightly low attenuation of the hepatic parenchyma suggesting fatty infiltration. Small gallstones layering within the nondistended gallbladder. Adrenal glands and pancreas show no gross abnormality. Spleen borderline enlarged at 13.8 cm on coronal series. 5 mm nonobstructive right renal calculus. Exophytic 4.4 cm posterior lower pole right renal cyst. 1.8 cm anterior upper pole right renal cyst. A couple too small to characterize cortical hypodensities measuring less than 6 mm. A couple nonobstructive left lower pole renal calculus measuring up to 6 mm. Indeterminate attenuatio n 5 mm cortical lesion lateral midpole left kidney could represent a complicated cyst or small early solid mass and could be reassessed in 6 months. No dilated small bowel, free fluid, or free air. No mesenteric or retroperitoneal lymphadenopathy. Mild stool in the right side of the colon. No pericolonic inflammatory change. Pelvis not imaged. Bones: Hypertrophic facet arthropathy lower lumbar spine. IMPRESSION: 1. SMALL HIATAL HERNIA, HEPATOMEGALY (20.2 CM) WITH MILD HEPATIC STEATOSIS, CHOLELITHIASIS, BORDERLIN E SPLENOMEGALY AT 13.8 CM, AND A FEW NONOBSTRUCTIVE CALCULI IN BOTH KIDNEYS MEASURING UP TO 6 MM. 2. BILATERAL RENAL CYSTS MEASURING UP TO 4.4 CM. A TINY 5 MM CORTICAL LESION LATERAL LEFT KIDNEY COUL D REPRESENT A SMALL SOLID MASS OR A COMPLICATED CYST. SIX-MONTH FOLLOW-UP CT TO REASSESS.
== END | disposition home or self-care (01) ==
LOC: RADCTMAIN 15:34 → EEVIPCON 16:20
PROVIDERS: ATTEND Family Medicine
DX: N20.0 Calculus of kidney (principal); K80.20 Calculus of gallbladder without cholecystitis without obstruction; K76.0 Fatty (change of) liver, not elsewhere classified; K44.9 Diaphragmatic hernia without obstruction or gangrene; R16.2 Hepatomegaly with splenomegaly, not elsewhere classified; N28.1 Cyst of kidney, acquired
CPT/HCPCS: 74150

== ENCOUNTER 2021-01-21 15:53 | Emergency (ER) | payer MEDICARE ==
[2021-01-21 15:59] VITALS: BP 111/74; PULSE 77; RESP 18; TEMP 98
[2021-01-21 16:25] LABS: Appearance,Urine Clear (Clear); Bilirubin,Urine Negative (Negative); Blood,Urine Moderate (Negative); Color,Urine Light Yellow; Glucose,Urine (UA) Negative (Negative); Ketones,Urine Negative (Negative); Leukocyte Esterase,Urine Trace (Negative); Mucus,Urine Rare /hpf; Nitrite,Urine Negative (Negative); Protein,Urine Negative (Negative); RBC,Urine 74 /hpf (0-5); Specific Gravity,Urine 1.011 (1.001-1.035); Urobilinogen,Urine <2.0 mg/dL (<2.0); WBC,Urine 4 /hpf (0-5)
--- NOTE | 2021-01-21 16:35 | XR ---
EXAMINATION TYPE: XR femur LT DATE OF EXAM: 01/21/2021 COMPARISON: NONE HISTORY: Pain TECHNIQUE: 4 views FINDINGS: There is no evidence of fracture nor dislocation. Joint spaces are normal. There is no path ologic calcification. IMPRESSION: Negative left femur exam. No fracture.
--- NOTE | 2021-01-21 16:36 | XR ---
EXAMINATION TYPE: XR KUB DATE OF EXAM: 01/21/2021 COMPARISON: NONE HISTORY: Pain TECHNIQUE: 2 views FINDINGS: Supine views show no sign of intestinal obstruction or pneumoperitoneum. Fecal pattern is n ormal. There is no evidence of a mass. There are no calcifications over the left kidney. There is pos sible 3 mm calculus over the right kidney. IMPRESSION: Nonacute abdomen. Right renal calculus not changed compared to 11/23/2020 CT scan.
--- NOTE | 2021-01-21 16:52 | XR ---
EXAMINATION TYPE: XR Hip LT and AP Pelvis DATE OF EXAM: 01/21/2021 COMPARISON: NONE HISTORY: Pain TECHNIQUE: 3 views FINDINGS: Pelvic ring is intact. Proximal left femur and hip joint appear intact. Sacroiliac joints a re intact. IMPRESSION: Negative pelvis and left hip exam.
--- NOTE | 2021-01-21 17:03 | ED ---
Fall HPI - General Chief Complaint: Fall Stated Complaint: fall, L hip pain Time Seen by Provider: 01/21/21 16:02 Source: patient, RN notes reviewed Mode of arrival: wheelchair - History of Present Illness Initial Comments: Patient is a 65-year-old male that presents to the emergency department complaining of left hip and thigh pain after falling while trying to trim some branches standing up beside his truck. He notes that he try to stepdown lost his footing and fell landing on his left hip buttock and leg. He denied any difficulty with walking. He denied any issues with urination or bowel movements. He denied any saddle anesthesia. He was otherwise a well-appearing 65-year-old male with no other issues or complaints. He denied any chest pain shortness breath headache nausea vomiting diarrhea constipation fever fatigue chills. - Related Data Home Medications Medication Instructions Recorded Confirmed Montelukast [Singulair] 10 mg PO HS 03/16/14 04/27/19 Aspirin EC [Ecotrin Low Dose] 81 mg PO HS 04/22/18 04/27/19 Omeprazole 20 mg PO HS 04/22/18 04/27/19 amLODIPine [Norvasc] 10 mg PO HS 04/22/18 04/27/19 metFORMIN HCL ER [Glucophage XR] 500 mg PO HS 04/22/18 04/27/19 Atorvastatin [Lipitor] 10 mg PO HS 04/27/19 04/27/19 FLUoxetine HCL [PROzac] 20 mg PO HS 04/27/19 04/27/19 lisinopriL 40 mg PO HS 04/27/19 04/27/19 Allergies Allergy/AdvReac Type Severity Reaction Status Date / Time No Known Allergies Allergy Verified 01/21/21 15:59 Review of Systems ROS Statement: Those systems with pertinent positive or pertinent negative responses have been documented in the HPI. ROS Other: All systems not noted in ROS Statement are negative. Past Medical History Past Medical History: Diabetes Mellitus, GERD/Reflux, Hypertension, Osteoarthritis (OA) Additional Past Medical History / Comment(s): hx migraine x 1, head injury in his 20s., hiatal hernia, History of Any Multi-Drug Resistant Organisms: None Reported Past Surgical History: Orthopedic Surgery Additional Past Surgical History / Comment(s): Rt knee arthroscopy, cyst removed from rt hand, lasik eye surgery bilaterally, colonoscopy Past Anesthesia/Blood Transfusion Reactions: No Reported Reaction Additional Past Anesthesia/Blood Transfusion Reaction / Comment(s): . Past Psychological History: Anxiety Smoking Status: Never smoker Past Alcohol Use History: Rare Past Drug Use History: None Reported - Past Family History Mother Family Medical History: No Reported History Additional Family Medical History / Comment(s): . Father Family Medical History: CVA/TIA Additional Family Medical History / Comment(s): CVA General Exam Limitations: no limitations General appearance: alert, in no apparent distress Head exam: Present: atraumatic, normocephalic, normal inspection Eye exam: Present: normal appearance, PERRL, EOMI. Absent: scleral icterus, conjunctival injection, periorbital swelling Neck exam: Present: normal inspection Respiratory exam: Present: normal lung sounds bilaterally. Absent: respiratory distress, wheezes, rales, rhonchi, stridor Cardiovascular Exam: Present: regular rate, normal rhythm, normal heart sounds. Absent: systolic murmur, diastolic murmur, rubs, gallop, clicks Extremities exam: Present: normal inspection, full ROM, normal capillary refill. Absent: tenderness, pedal edema, joint swelling, calf tenderness Left Hip exam: Present: normal inspection, full ROM, tenderness (In the area of the bruise.), ecchymosis (Large bruise to the posterior aspect of the left hip and upper thigh.). Absent: swelling, abrasion Upper Leg exam: Present: normal inspection, full ROM, ecchymosis (Posterior lateral aspect.) Neurological exam: Present: alert, oriented X3 Psychiatric exam: Present: normal affect, normal mood Skin exam: Present: warm, dry, intact, normal color. Absent: rash Course Vital Signs 01/21/21 15:55 Temperature 98 F Pulse Rate 77 Respiratory 18 Rate Blood Pressure 111/74 O2 Sat by Pulse 97 Oximetry Medical Decision Making - Medical Decision Making 65-year-old male complaining of left hip and upper leg pain after falling while trimming bushes. X-ray of the pelvis left hip and femur ordered. Urinalysis obtained. X-ray imaging negative for any acute fractures. Incidental finding of a right kidney stone not changed from 11/23/2020. Case discussed with Dr. Stephens, patient discharge home with follow-up primary care. - Lab Data Lab Results 01/21/21 Range/Units 16:13 Urine Color Light Yellow Urine Appearance Clear (Clear) Urine pH 7.0 (5.0-8.0) Ur Specific [place] 1.011 (1.001-1.035) Urine Protein Negative (Negative) Urine Glucose (UA) Negative (Negative) Urine Ketones Negative (Negative) Urine Blood Moderate H (Negative) Urine Nitrite Negative (Negative) Urine Bilirubin Negative (Negative) Urine Urobilinogen <2.0 (<2.0) mg/dL Ur Leukocyte Esterase Trace H (Negative) Urine RBC 74 H (0-5) /hpf Urine WBC 4 (0-5) /hpf Urine Mucus Rare H (None) /hpf - Radiology Data Radiology results: report reviewed, image reviewed X-ray of the pelvis and hips: Negative pelvis and left hip exam. KUB: Nonacute abdomen. Right renal calculus not changed compared 11/23/2020. Left femur x-ray: Negative left femur exam. No fracture. Disposition Clinical Impression: Fall, Left hip pain, Left leg pain, Contusion of left hip and thigh Disposition: HOME SELF-CARE Condition: Stable Instructions (If sedation given, give patient instructions): Fall Prevention (ED) Additional Instructions: Please return to the Emergency Department if symptoms worsen or any other concerns. Follow-up with primary care in 1-2 days. Tylenol and Motrin for pain. Rest ice compress elevate. Is patient prescribed a controlled substance at d/c from ED?: No Referrals: Waleska Lin DO [Primary Care Provider] - 1-2 days Time of Disposition: 17:03
[2021-01-21] MEDS ORDERED: MAGNESIUM CITRATE 296 ML BOTTLE PO ONE (17:08)
== END 2021-01-21 17:14 | disposition home or self-care (01) ==
LOC: EC 15:53
DX: S70.02XA Contusion of left hip, initial encounter (principal); S70.12XA Contusion of left thigh, initial encounter; E11.9 Type 2 diabetes mellitus without complications; I10 Essential (primary) hypertension; K21.9 Gastro-esophageal reflux disease without esophagitis; M19.90 Unspecified osteoarthritis, unspecified site; Z79.82 Long term (current) use of aspirin; Z79.84 Long term (current) use of oral hypoglycemic drugs; Z79.899 Other long term (current) drug therapy; W19.XXXA Unspecified fall, initial encounter; Y93.89 Activity, other specified
CPT/HCPCS: 73502; 74018; 81001; 99283

== ENCOUNTER 2021-01-22 20:32 | Emergency (ER) | payer MEDICARE ==
[2021-01-22 21:00] VITALS: TEMP 98.2
[2021-01-22] MEDS ORDERED: PANTOPRAZOLE 40 MG/10 ML VIAL IVP STA (22:24)
[2021-01-22] MEDS ORDERED: KETOROLAC 15 MG/ML 1 ML VIAL IVP STA (22:24)
[2021-01-22] MEDS ORDERED: ONDANSETRON 4 MG/2 ML VIAL IVP STA (22:24)
--- NOTE | 2021-01-22 22:25 | ED ---
Abdominal Pain HPI - General Chief Complaint: Abdominal Pain Stated Complaint: L side Abd pain Time Seen by Provider: 01/22/21 22:15 Source: family Mode of arrival: wheelchair Limitations: no limitations - History of Present Illness Initial Comments: 65-year-old male presents to emergency Department with a chief complaint of abdominal pain. Patient is presenting with left lower quadrant abdominal pain without any radiation. States he was seen yesterday and evaluated with some x- rays of the abdomen. Patient reports he was discharged with some magnesium citrate which helped him promote bowel movements. States prior to that, he did not have a bomb went for the 2 days. States now he is having multiple episodes of loose stools but the pain seems to be persistent. He does report one episode of vomiting yesterday but nothing today. However, he does have some nausea. Denies any associated chest pain or shortness of breath. Denies any fevers or chills. Denies any obstructive or infectious urinary symptoms. Denies hematuria, hematochezia or melena. - Related Data Home Medications Medication Instructions Recorded Confirmed Montelukast [Singulair] 10 mg PO HS 03/16/14 04/27/19 Aspirin EC [Ecotrin Low Dose] 81 mg PO HS 04/22/18 04/27/19 Omeprazole 20 mg PO HS 04/22/18 04/27/19 amLODIPine [Norvasc] 10 mg PO HS 04/22/18 04/27/19 metFORMIN HCL ER [Glucophage XR] 500 mg PO HS 04/22/18 04/27/19 Atorvastatin [Lipitor] 10 mg PO HS 04/27/19 04/27/19 FLUoxetine HCL [PROzac] 20 mg PO HS 04/27/19 04/27/19 lisinopriL 40 mg PO HS 04/27/19 04/27/19 Previous Rx's Medication Instructions Recorded Ondansetron Odt [Zofran Odt] 4 mg PO Q8HR PRN #14 tab 01/23/21 Tamsulosin [Flomax] 0.4 mg PO DAILY #7 cap 01/23/21 Allergies Allergy/AdvReac Type Severity Reaction Status Date / Time No Known Allergies Allergy Verified 01/21/21 15:59 Review of Systems ROS Statement: Those systems with pertinent positive or pertinent negative responses have been documented in the HPI. ROS Other: All systems not noted in ROS Statement are negative. Past Medical History Past Medical History: Diabetes Mellitus, GERD/Reflux, Hypertension, Osteoarthritis (OA) Additional Past Medical History / Comment(s): hx migraine x 1, head injury in his 20s., hiatal hernia, History of Any Multi-Drug Resistant Organisms: None Reported Past Surgical History: Orthopedic Surgery Additional Past Surgical History / Comment(s): Rt knee arthroscopy, cyst removed from rt hand, lasik eye surgery bilaterally, colonoscopy Past Anesthesia/Blood Transfusion Reactions: No Reported Reaction Additional Past Anesthesia/Blood Transfusion Reaction / Comment(s): . Past Psychological History: Anxiety Smoking Status: Never smoker Past Alcohol Use History: Rare Past Drug Use History: None Reported - Past Family History Mother Family Medical History: No Reported History Additional Family Medical History / Comment(s): . Father Family Medical History: CVA/TIA Additional Family Medical History / Comment(s): CVA General Exam Limitations: no limitations General appearance: alert, in no apparent distress, obese Head exam: Present: atraumatic, normocephalic, normal inspection Eye exam: Present: normal appearance Pupils: Present: normal accommodation ENT exam: Present: normal exam, normal oropharynx, mucous membranes moist Neck exam: Present: normal inspection, full ROM. Absent: tenderness Respiratory exam: Present: normal lung sounds bilaterally. Absent: respiratory distress, wheezes, rales, rhonchi, stridor Cardiovascular Exam: Present: regular rate, normal rhythm, normal heart sounds. Absent: systolic murmur GI/Abdominal exam: Present: soft, tenderness (Left lower quadrant tenderness). Absent: distended, guarding, rebound, rigid Extremities exam: Present: normal inspection, full ROM, normal capillary refill. Absent: tenderness, pedal edema, joint swelling Back exam: Present: normal inspection, full ROM. Absent: tenderness, CVA ten derness (R), CVA tenderness (L) Neurological exam: Present: alert, oriented X3 Psychiatric exam: Present: normal affect, normal mood Skin exam: Present: warm, dry, intact, normal color Course Vital Signs 01/22/21 01/22/21 20:58 23:00 Temperature 98.2 F Pulse Rate 66 70 Respiratory 18 18 Rate Blood Pressure 120/72 131/73 O2 Sat by Pulse 98 97 Oximetry Medical Decision Making - Medical Decision Making 65-year-old male presents to emergency Department with a chief complaint of abdominal pain. On physical examination, left lower quadrant tenderness. Patient has an obstructing stone in the left UVJ measuring about 4 mm. He also has bilateral small renal stones.laboratory work revealed leukocytosis of 16,000 which I suspect is reactive from the vomiting. CMP reveals hypokalemia with a potassium of 3.0. Patient was given oral K Dur. He was given IV fluids, antiemetics and analgesia.on reevaluation, he reports improvement in his symptoms. We'll discharge him with Tylenol 3 and a Zofran starter pack. We'll also give him a prescription for Flomax. Advised to follow-up with a urologist. Return parameters were thoroughly discussed with patient and understanding agreeable. Case discussed with physician. - Lab Data Result diagrams: 01/22/21 22:38 01/22/21 22:38 Lab Results 01/22/21 01/22/21 01/22/21 Range/Units 22:38 22:38 22:38 WBC 16.2 H (3.8-10.6) k/uL RBC 5.36 (4.30-5.90) m/uL Hgb 15.8 (13.0-17.5) gm/dL Hct 46.9 (39.0-53.0) % MCV 87.5 (80.0-100.0) fL MCH 29.4 (25.0-35.0) pg MCHC 33.7 (31.0-37.0) g/dL RDW 14.6 (11.5-15.5) % Plt Count 195 (150-450) k/uL MPV 8.1 Neutrophils % 86 % Lymphocytes % 6 % Monocytes % 6 % Eosinophils % 1 % Basophils % 0 % Neutrophils # 13.9 H (1.3-7.7) k/uL Lymphocytes # 0.9 L (1.0-4.8) k/uL Monocytes # 1.0 (0-1.0) k/uL Eosinophils # 0.1 (0-0.7) k/uL Basophils # 0.1 (0-0.2) k/uL Sodium 136 L (137-145) mmol/L Potassium 3.0 L (3.5-5.1) mmol/L Chloride 103 (98-107) mmol/L Carbon Dioxide 23 (22-30) mmol/L Anion Gap 10 mmol/L BUN 32 H (9-20) mg/dL Creatinine 1.06 (0.66-1.25) mg/dL Est GFR (CKD-EPI)AfAm 85 (>60 ml/min/1.73 sqM) Est GFR (CKD-EPI)NonAf 74 (>60 ml/min/1.73 sqM) Glucose 173 H (74-99) mg/dL Calcium 10.0 (8.4-10.2) mg/dL Total Bilirubin 1.4 H (0.2-1.3) mg/dL AST 28 (17-59) U/L ALT 28 (4-49) U/L Alkaline Phosphatase 74 (38-126) U/L Total Protein 6.5 (6.3-8.2) g/dL Albumin 3.9 (3.5-5.0) g/dL Lipase 85 (23-300) U/L Urine Color Yellow Urine Appearance Clear (Clear) Urine pH 6.0 (5.0-8.0) Ur Specific Lane 1.031 (1.001-1.035) Urine Protein Trace H (Negative) Urine Glucose (UA) Negative (Negative) Urine Ketones Negative (Negative) Urine Blood Small H (Negative) Urine Nitrite Negative (Negative) Urine Bilirubin Negative (Negative) Urine Urobilinogen <2.0 (<2.0) mg/dL Ur Leukocyte Esterase Negative (Negative) Urine RBC 16 H (0-5) /hpf Urine WBC 5 (0-5) /hpf Urine Mucus Occasional H (None) /hpf - EKG Data EKG Comments: Sinus rhythm Return to the right 63, MI 156, QRS 108, QTC 440. Disposition Clinical Impression: Kidney stone on left side Disposition: HOME SELF-CARE Condition: Stable Instructions (If sedation given, give patient instructions): Kidney Stones (ED) Additional Instructions: Follow-up with urology. Return to emergency department if symptoms worsen. Prescriptions: Tamsulosin [Flomax] 0.4 mg PO DAILY #7 cap Ondansetron Odt [Zofran Odt] 4 mg PO Q8HR PRN #14 tab PRN Reason: Nausea Is patient prescribed a controlled substance at d/c from ED?: No Referrals: Waleska Lin DO [Primary Care Provider] - 1-2 days Domingo To MD [STAFF PHYSICIAN] - 1-2 days Time of Disposition: 00:10
[2021-01-22 22:49] LABS: Basophils # (A) 0.1 k/uL (0-0.2); Basophils % (A) 0 %; Eosinophils # (A) 0.1 k/uL (0-0.7); Eosinophils % (A) 1 %; HCT 46.9 % (39.0-53.0); HGB 15.8 gm/dL (13.0-17.5); Lymphocytes # (A) 0.9 k/uL (1.0-4.8); Lymphocytes % (A) 6 %; MCH 29.4 pg (25.0-35.0); MCHC 33.7 g/dL (31.0-37.0); MCV 87.5 fL (80.0-100.0); Mean Platelet Volume 8.1; Monocytes % (A) 6 %; Neutrophils # (A) 13.9 k/uL (1.3-7.7); Neutrophils % (A) 86 %; Platelet Count 195 k/uL (150-450); RBC 5.36 m/uL (4.30-5.90); RDW 14.6 % (11.5-15.5); WBC 16.2 k/uL (3.8-10.6)
[2021-01-22 23:12] LABS: Albumin 3.9 g/dL (3.5-5.0); Total Bilirubin 1.4 mg/dL (0.2-1.3); Total Protein 6.5 g/dL (6.3-8.2)
[2021-01-22 23:19] LABS: Appearance,Urine Clear (Clear); Bilirubin,Urine Negative (Negative); Blood,Urine Small (Negative); Color,Urine Yellow; Glucose,Urine (UA) Negative (Negative); Ketones,Urine Negative (Negative); Leukocyte Esterase,Urine Negative (Negative); Mucus,Urine Occasional /hpf; Nitrite,Urine Negative (Negative); Protein,Urine Trace (Negative); RBC,Urine 16 /hpf (0-5); Specific Gravity,Urine 1.031 (1.001-1.035); Urobilinogen,Urine <2.0 mg/dL (<2.0); WBC,Urine 5 /hpf (0-5)
[2021-01-22] MEDS ORDERED: POTASSIUM CHLORIDE ER 20 MEQ TAB.ER PO STA (23:29)
--- NOTE | 2021-01-23 | CT ---
EXAMINATION TYPE: CT abdomen pelvis w con DATE OF EXAM: 01/22/2021 COMPARISON: 11/23/2020 HISTORY: LLQ pain CT DLP: 1807.8 mGycm Automated exposure control for dose reduction was used. CONTRAST: Performed with IV Contrast, patient injected with 100 mL of Isovue 300. There is mild subsegmental atelectasis at the lung bases. Heart size is normal. There is no pericardi al effusion. There is no pleural effusion. Liver spleen stomach pancreas appear normal. Bile ducts are nondilated. There are multiple gallstones . The bile ducts are not dilated. There is no adrenal mass. Kidneys show satisfactory contrast opacification. There is 5 mm calculus lo wer pole left kidney. There are right renal cortical cysts. The largest measures 4.5 cm. There is marichuy e left side hydronephrosis and delayed left side pyelogram. There is a 4 mm obstructing calculus at t he left distal ureter. Bladder distends smoothly. Prostate is enlarged and measures 6 cm. There is bi lateral fat-containing inguinal hernias. Appendix appears normal. There is no mesenteric edema. There is no ascites or free air. There is no b owel obstruction. The lumbar vertebra have normal alignment. Posterior elements are intact. There is no compression fracture. Bony pelvis is intact. The hip joints are intact. There is no hip dysplasia. IMPRESSION: Small obstructing calculus distal left ureter at the ureterovesical junction. Mild left-sided hydrone phrosis and hydroureter. Bilateral small renal calculi. Normal appendix. Renal obstruction is new compared to old exam.
[2021-01-23] MEDS ORDERED: ONDANSETRON 4 MG ODT STARTER PACK 2 TAB BTL PO STA (00:06)
[2021-01-23] MEDS ORDERED: ACET/COD 300 MG/30 MG STARTER PACK 6 TAB BTL PO STA (00:06)
[2021-01-23 00:23] VITALS: BP 102/56; PULSE 86; RESP 16
== END 2021-01-23 00:23 | disposition home or self-care (01) ==
LOC: EC 20:32
DX: N13.2 Hydronephrosis with renal and ureteral calculous obstruction (principal); E11.9 Type 2 diabetes mellitus without complications; I10 Essential (primary) hypertension; G43.909 Migraine, unspecified, not intractable, without status migrainosus; K21.9 Gastro-esophageal reflux disease without esophagitis; M19.90 Unspecified osteoarthritis, unspecified site; Z79.899 Other long term (current) drug therapy; Z79.82 Long term (current) use of aspirin; Z79.52 Long term (current) use of systemic steroids; Z79.84 Long term (current) use of oral hypoglycemic drugs; Z79.51 Long term (current) use of inhaled steroids
CPT/HCPCS: 36415; 93005; 80053; 83690; 85025; 81001; 74177; 99284; 96374; 96375; J2405; J1885; C9113; Q9967

== ENCOUNTER → 2022-04-16 | Outpatient (CLI) | payer MEDICARE ==
--- NOTE | 2022-04-16 11:08 | CA ---
Stress Echo Report Adam Cortez Age: 66 Gender: M : 1955 Exam Date: 04/16/2022 10:01 Exam Location: [place] [facility] Ht (in): 71 Wt (lb): 238 Ordering Physician: Waleska Larsen DO Referring Physician: WALESKA LARSEN,, Fire Apparatus Sprinkler Inspector: Varghese Miguel Technologist Procedure CPT: Indication: R07.89 Other chest pain K21.9 ICD-9 Codes: Rhythm: Patient History: Cardiac Medications: Medications in past 24 hours: Contrast: Stress Results Protocol: Wayne Total dose(mL): Exercise Duration (min:sec): Max ST Depression (mm): Angina Score: Block Score: METS: 10.3 Resting HR: 64 Resting BP: 113 / 56 Peak HR: 138 Peak BP: 219 / 49 Max Predicted HR: 154 90 % Max Predicted HR Target HR: 131 Double Product: [id number] Stress Summary: BP Response: Reason for Termination: Reached target heart rate or work-load Cardiac Symptoms: NO SYMPTOMS ECG Analysis Resting ECG: Stress ECG: Arrhythmia: Echo Analysis Resting Echo: Peak Echo Analysis: MEASUREMENTS (Male/Female) Normal Values CONCLUSIONS Patient underwent exercise stress echo with a Wayne protocol treadmill stress test. Patient exercised into Stage 3 for a total of 9 minutes 9 seconds reaching a total of 10.3 METS. Patient's maximum heart rate was 138 which represented 89 % age- predicted maximum heart rate. Stress EKG portion: At baseline patient's EKG showed normal sinus rhythm, left axis deviation, no significant ST or T wave abnormalities. At peak exercise, EKG showed nonspecific 0.[address] depressions V4 through V6 as well as abnormal [address] depressions 1 in aVL with T-wave inversions and borderline aVR elevation. Stress echo portion: 2-D echocardiogram was performed in the parasternal long, personal short, apical 2 and apical four-chamber views at rest, peak exercise and in recovery. At baseline, echocardiogram showed left ventricular ejection fraction 55 % without wall motion abnormalities. With peak exercise, echocardiogram shows improvement in left ventricular ejection fraction, increase contractility, decrease in left ventricular end systolic dimension without wall motion abnormalities consistent with a normal response to exercise. Conclusions: 1. Abnormal EKG response to stress with downsloping ST depressions and 1 in aVL 2. Normal stress echo portion without inducible ischemia. Clinical correlation recommended 3. Normal left ventricular ejection fraction 55% 4. Good exercise tolerance Dr. Denny Kaminski DO (Electronically Signed) Final Date: 16 April 2022 11:07
== END | disposition home or self-care (01) ==
LOC: RADNMMAIN 09:46
PROVIDERS: ATTEND Family Medicine
DX: R94.31 Abnormal electrocardiogram [ECG] [EKG] (principal); K21.9 Gastro-esophageal reflux disease without esophagitis; R07.89 Other chest pain
CPT/HCPCS: 93351

== ENCOUNTER 2022-10-02 08:35 | Day surgery (SDC) | payer MEDICARE ==
[2022-10-01 08:52] VITALS: BMI 33.5
[~2022-10-02 08:35] MED LIST changes: +ALPRAZolam 0.25 MG TAB PO PRN; +ALPRAZolam 0.5 MG TAB PO PRN; +ASPIRIN 325 MG TAB PO ONE; +ATORVASTATIN 80 MG TAB PO ONE; +HEPARIN SODIUM,PORCINE 10,000 UNIT in SODIUM CHLORIDE 0.9% 1,000 ML IRRIGATION PRN; +HEPARIN SODIUM,PORCINE 2,500 UNIT in SODIUM CHLORIDE 0.9% 250 ML IRRIGATION PRN; -LACTATED RINGERS 1,000 ML IV SCH; +NITROGLYCERIN SL TABS 0.4 MG TAB SUBLINGUAL PRN; +SODIUM CHLORIDE 0.9% 1,000 ML in EMPTY BAG 1 BAG IV SCH
[2022-10-02 09:35] VITALS: RESP 16; TEMP 98
[2022-10-02 09:38] LABS: Glucose,Whole Blood 121 mg/dL (70-110)
[2022-10-02] MEDS ORDERED: fentaNYL (PF) 50 MCG/ML 2 ML AMP ONE (14:36)
[2022-10-02] MEDS ORDERED: fentaNYL (PF) 50 MCG/1 ML VIAL IV ONE (14:42)
[2022-10-02] MEDS ORDERED: MIDAZOLAM 2 MG/2 ML VIAL IV ONE (14:42)
[2022-10-02] MEDS ORDERED: LIDOCAINE 1% INJ 10MG/ML (5 ML VIAL-PF) SQ ONE ×2 (14:46→14:57)
[2022-10-02] MEDS ORDERED: VERAPAMIL SYRINGE (5 MG/10 ML) INTRAARTER ONE (14:46)
[2022-10-02] MEDS ORDERED: HEPARIN SODIUM 1,000 UN/ML (10ML VL) IV ONE (14:48)
[2022-10-02] MEDS ORDERED: IOPAMIDOL-370 200ML BTL INJ ONE (14:57)
[2022-10-02 18:07] VITALS: BP 129/60; PULSE 58
--- NOTE | 2022-10-11 12:21 | P.CARDCATH ---
Description of Procedure: PROCEDURES PERFORMED: Left heart catheterization, bilateral coronary angiography INDICATION: Abnormal stress test, abnormal CTA coronary arteries concerning for LAD 70% stenosis CONSENT:I have discussed the risks, benefits and alternative therapies for the above-mentioned procedure and for both sedation/analgesia as well as necessary blood product administration, if indicated, as they pertain to this patient. The patient has indicated understanding and acceptance of the risks and procedures discussed. PROCEDURE: After the risks, benefits and alternatives of the above mentioned procedure explained in detail with the patient, informed consent was obtained. Patient was taken to the catheterization lab and prepped and draped in usual fashion. 1% lidocaine was used to anesthetize the right radial artery. A 6- Australian sheath was placed in the right radial artery using modified Seldinger technique. Left coronary angiography was performed with a 5-Australian JL 3.5 catheter and right coronary angiography was performed with a 5-Australian JR5 catheter in various views. The FR5 catheter was advanced into the LV and pressure measurements were obtained. The right radial sheath was removed and a TR band was placed with hemostasis achieved. The patient tolerated the procedure well. Patient was transported back to the post catheterization holding area in stable condition. Conscious Sedation: Patient was monitored under the direct supervision of myself for conscious sedation using Versed and fentanyl for a total duration of 13 minutes HEMODYNAMICS: Aorta: 134/78 LV: 141/5, LVEDP 23 SELECTIVE CORONARY ARTERIOGRAPHY: LEFT MAIN: The left main is a large caliber vessel which bifurcates into the LAD and circumflex. There is no significant stenosis. LEFT ANTERIOR DESCENDING CORONARY ARTERY: LAD is a large caliber vessel which wraps around to the apex. There is 20-30% proximal LAD stenosis and mild luminal irregularities of the mid LAD. LEFT CIRCUMFLEX CORONARY ARTERY: Left circumflex is a large caliber vessel which gives off the PDA and is the dominant vessel. There is mild 20% mid circumflex stenosis. RIGHT CORONARY ARTERY: The right coronary artery is a small to moderate caliber vessel which gives off an acute marginal branch and is nondominant. There is mild 10% RCA stenosis. FINAL IMPRESSION: 1. Mild CAD as described above. 2. Elevated left sided filling pressures PLAN: 1. Aggressive risk factor modification per most recent ACC/AHA guidelines. 2. Follow-up in the office in 1-2 weeks.
== END 2022-10-02 17:58 | disposition home or self-care (01) ==
LOC: CATHCVL 08:35
PROVIDERS: ATTEND Internal Medicine
DX: I25.10 Atherosclerotic heart disease of native coronary artery without angina pectoris (principal); I10 Essential (primary) hypertension; E78.5 Hyperlipidemia, unspecified; I71.21 Aneurysm of the ascending aorta, without rupture; E66.9 Obesity, unspecified; Z68.32 Body mass index [BMI] 32.0-32.9, adult; Z79.84 Long term (current) use of oral hypoglycemic drugs; Z79.82 Long term (current) use of aspirin; Z79.899 Other long term (current) drug therapy
CPT/HCPCS: 93458; 99152; C1769; C1894; J2250; J2001; J1644; J3010; Q9967

== ENCOUNTER → 2023-10-13 | Outpatient (CLI) | payer MEDICARE ==
--- NOTE | 2023-10-14 07:31 | US ---
EXAMINATION TYPE: US abdomen complete DATE OF EXAM: 10/13/2023 COMPARISON: NONE CLINICAL INDICATION: Male, 67 years old with history of R10.11 RIGHT UPPER QUADRANT PAIN; RUQ pain li mited due to body habitus and bowel gas. TECHNIQUE: Multiple sonographic images of the abdomen are obtained. FINDINGS: EXAM MEASUREMENTS: Liver Length: 18.8 cm Gallbladder Wall: .3 cm CBD: .6 cm Spleen: 13.3 cm Right Kidney: 11.7 x 5.2 x 5.6 cm Left Kidney: 12.8 x 6.1 x 5.3 cm SUPERVISOR DRYING NOTES: Pancreas: Obscured by bowel gas Liver: Increased attenuation Gallbladder: Stones visualized. Evidence for sonographic Hull's sign: No CBD: wnl Spleen: wnl Right Kidney: Anechoic area seen lower pole 5.2 x 4.7 x 4.9 cm. Left Kidney: Echogenic area seen lower pole. Upper IVC: wnl Abd Aorta: Proximal limited. IMPRESSION: 1. Hepatomegaly. 2. Cholelithiasis. 3. Right renal cyst. 4. May be a nonobstructing renal stone inferior pole left kidney.
== END | disposition home or self-care (01) ==
LOC: RADUSWWP 08:12 → MERGE 09:30
PROVIDERS: ATTEND Family Medicine
DX: K80.20 Calculus of gallbladder without cholecystitis without obstruction (principal); R16.0 Hepatomegaly, not elsewhere classified; N28.1 Cyst of kidney, acquired
CPT/HCPCS: 76700